=== PATIENT | female | born 1975 | race Caucasian/White ===

== ENCOUNTER 2017-11-28 14:18 | Observation (INO) | payer SELFPAY ==
[~2017-11-28] VITALS: Ht 157.5 cm; Wt 114.0 kg
[~2017-11-28 14:18] MED LIST: LORTAB5 PO; NO HOME MEDS; PENICILLN VK500 MG PO
--- NOTE | 2017-11-28 14:26 | NUR ---
WHEELCHAIR TO ER TRIAGE AREA AND RETURNED TO WAITING ROOM DUE TO LACK OF AVAILABLE BEDS
[2017-11-28 15:21] LABS: ALBUMIN 4.7 g/dL (3.2-5.0); ALKALINE PHOSPHATASE 117 u/l (38-126); ANION GAP 17 (6-22 (CALC)); BILIRUBIN, TOTAL 0.3 mg/dL (0.0-1.4); BUN 14 mg/dL (7-17); BUN/CREATININE RATIO 19 (12-20 (CALC)); CALCIUM 9.8 mg/dL (8.4-10.2); CARBON DIOXIDE 26 mmol/l (22-30); CHLORIDE 102 mmol/l (95-108); CREATININE 0.8 mg/dL (0.5-1.0); GFR > 60 ML/MIN (>=60 (CALC)); GFR FOR AFR.AMER. > 60 ML/MIN (>=60 (CALC)); GLUCOSE 150 mg/dL (65-105); LIPASE 79 u/l (23-300); POTASSIUM 3.9 mmol/l (3.5-5.1); SGOT/AST 31 u/l (14-36); SGPT/ALT 31 u/l (9-52); SODIUM 140 mmol/l (137-146); TOTAL PROTEIN 7.9 g/dL (6.3-8.2)
[2017-11-28 15:25] LABS: HEMOGLOBIN 14.9 g/dl (12.0-16.0); IMMATURE GRANULOCYTES 0.9 % (0.0-1.0); MEAN CELL VOLUME 90.2 fL CALC (80.0-100.0); MEAN CORPUSCULAR HGB 29.2 pG CALC (26.0-32.0); MEAN CORPUSCULAR HGB CONC 32.4 g/L CALC (32.0-36.0); NEUT# 8.98 thou/uL (2.00-7.15); RED BLOOD COUNT 5.1 mill/uL (4.20-5.60); RED CELL DISTRI WIDTH 16.2 % (11.5-15.5)
--- NOTE | 2017-11-28 15:30 | NUR ---
MIKY REPORTS PAIN TO EPIGASTRIC AREA UPON PALPATION AND DIARRHEA X4 DAY STARTING ON 11/19/17. RATES PAIN LEVEL 5/10. NO SIGNS OF DISTRESS NOTED. CALL LIGTH WITHIN REACH, WILL CONTINUE TO MONITOR.
--- NOTE | 2017-11-28 16:30 | NUR ---
SBAR PRINTED TO FLOOR
--- NOTE | 2017-11-28 16:50 | NUR ---
PATIENT AMBULATES TO BATHROOM WITH STEADY GAIT. URINE SAMPLE COLLECTED. REPORTS PAIN TO ABD RATES PAIN 06/03. MD INFORMED AWAITING NEW ORDERS.
--- NOTE | 2017-11-28 17:10 | NUR ---
MD INFORMED ABOUT LAB VALUES LACTIC ACID >2.0 AND WBC 11.8. AWAITING ORDERS.
[2017-11-28 17:24] LABS: URINE BILIRUBIN - DIPSTICK NEGATIVE (NEGATIVE); URINE BLOOD DIPSTICK TRACE-INTACT (NEGATIVE); URINE COLOR YELLOW; URINE GLUCOSE - DIPSTICK NEGATIVE (NEGATIVE); URINE KETONE NEGATIVE (NEGATIVE); URINE LEUK ESTERASE NEGATIVE (NEGATIVE); URINE NITRITE - DIPSTICK NEGATIVE (Negative); URINE PROTEIN - DIPSTICK TRACE mg/dL (NEG-TRACE); URINE SPECIFIC GRAVITY 1.025; URINE UROBILINOGEN - DIPSTICK 0.2 E.U./dL (0.2)
[2017-11-28 17:25] LABS: URINE CLARITY SL CLOUDY
--- NOTE | 2017-11-28 17:45 | NUR ---
REPORT GIVEN TO TIRSO MACKAY.
--- NOTE | 2017-11-28 17:50 | NUR ---
PATIENT TRANSPORTED TO [facility] VIA WHEELCHAIR. BEDSIDE REPORT GIVEN TO TIRSO MACKAY. CARE RELINQUISHED.
--- NOTE | 2017-11-28 18:00 | NUR ---
PT TO ROOM VIA WC ACCOMPANIED BY STAFF; PT A/O X3; PT HAS NOT COMPLAINTS OF PAIN VOICED AT THIS TIME; IVF INFUSING IN #20 LAC WITHOUT DIFFICULTY, NO REDNESS OR EDEMA NOTED; ENCOURAGE USE OF CALL LIGHT IF ANY ASSISTANCE IS NEEDED; WILL CONTINUE TO MONITOR.
[2017-11-28 18:20] VITALS: BP 140/85
--- NOTE | 2017-11-28 20:00 | NUR ---
PT IN BED A/O X3, RESPIRATIONS EVEN AND UNLABORED ON RA, C/O ABDOMINAL PAIN 04/03, DIALUDID FOR PAIN ORDERED Q4H PRN, PT AWARE AND STATES CAN WAIT, ALSO C/O NAUSEA DR. YU NOTIFIED AND NEW ORDER FOR ZOFRAN 4MG IV RECEIVED. PT AWARE. NS INFUSING TO LAC AT 80CC/HR. NPO AT THIST TIME. FAMILY AT BED SIDE, WILL CONTINUE TO MONITOR.
--- NOTE | 2017-11-28 22:12 | NUR ---
C/O ABDOMINAL PAIN 08/04, TORADOL 15MG IV ADMINISTERED AT THIS TIME. WILL CONTINUE TO MONITOR.
--- NOTE | 2017-11-29 02:26 | NUR ---
C/O ABDOMINAL PAIN 07/04, PROVIDED WITH LORTAB WITH A SIP OF WATER.
[2017-11-29 04:25] VITALS: BP 140/88
--- NOTE | 2017-11-29 06:45 | NUR ---
C/O ABDOMINAL PAIN 10/10 AND NAUSEA, TORADOL AND ZOFRAN ADMINISTERED AT THIS TIME, IV FLUIDS INFUSING TO LAC WITH NO COMPLICATIONS. CALL LIGHT IN REACH.
[2017-11-29 07:20] LABS: HEMATOCRIT 37.8 % (37.0-47.0); HEMOGLOBIN 12.2 g/dl (12.0-16.0); MEAN CELL VOLUME 89.6 fL CALC (80.0-100.0); MEAN CORPUSCULAR HGB 28.9 pG CALC (26.0-32.0); MEAN CORPUSCULAR HGB CONC 32.3 g/L CALC (32.0-36.0); RED BLOOD COUNT 4.22 mill/uL (4.20-5.60); RED CELL DISTRI WIDTH 16.2 % (11.5-15.5)
--- NOTE | 2017-11-29 07:30 | NUR ---
PT TO [facility] VIA WC ACCOMPANIED BY STAFF
[2017-11-29 07:36] LABS: ALBUMIN 3.7 g/dL (3.2-5.0); ALKALINE PHOSPHATASE 96 u/l (38-126); ANION GAP 13 (6-22 (CALC)); BILIRUBIN, TOTAL 0.6 mg/dL (0.0-1.4); BUN 12 mg/dL (7-17); BUN/CREATININE RATIO 17 (12-20 (CALC)); CALCIUM 8.6 mg/dL (8.4-10.2); CARBON DIOXIDE 22 mmol/l (22-30); CHLORIDE 109 mmol/l (95-108); CREATININE 0.7 mg/dL (0.5-1.0); GFR > 60 ML/MIN (>=60 (CALC)); GFR FOR AFR.AMER. > 60 ML/MIN (>=60 (CALC)); GLUCOSE 100 mg/dL (65-105); POTASSIUM 3.8 mmol/l (3.5-5.1); SGOT/AST 21 u/l (14-36); SGPT/ALT 26 u/l (9-52); SODIUM 141 mmol/l (137-146); TOTAL PROTEIN 6.3 g/dL (6.3-8.2)
--- NOTE | 2017-11-29 08:20 | NUR ---
PT RETURN FROM [facility] VIA WC ACCOMPANIED BY STAFF; NO COMPLAINTS VOICED AT THIS TIME; IVF INFUSING WITHOUT DIFFICULTY; CALL CASTILLO WITHIN REACH; WILL CONTINUE TO MONITOR.
[2017-11-29 09:00] VITALS: BP 132/76
--- NOTE | 2017-11-29 10:15 | NUR ---
DR. BARROS IN TO SEE PT; PLAN OF CARE DISCUSSED
[2017-11-29 12:00] LABS: CHOLESTEROL HDL RATIO 5.3 (<4.4 (CALC))
--- NOTE | 2017-11-29 12:20 | NUR ---
PT TOLERATED CLEAR LIQ DIET WELL; DENIES PAIN OR DISCOMFORT; FAMILY AT BEDSIDE; CALL CASTILLO WITHIN REACH; WILL CONTINUE TO MONITOR.
--- NOTE | 2017-11-29 12:40 | NUR ---
GUERLINE PROJECT ANALYST IN TO SEE PT TO DISCUSS LOW FAT DIET
[2017-11-29] MEDS ORDERED: LORTAB 5/3255 MG PO (14:42)
--- NOTE | 2017-11-29 17:18 | NUR ---
Discharge instructions given. Patient verbalizes understanding of same. Discharged in stable condition via Wheelchair to Home with family. All belongings sent with pt.
== END 2017-11-29 17:15 | disposition home or self-care (01) | DRG 446 ==
LOC: ED 14:18 → ED-I 16:07 → ED 16:24 → MS2 16:25
PROVIDERS: Emergency Medicine; Nurse Practitioner Family; ADMIT Internal Medicine; ATTEND Internal Medicine
DX: K80.20 Calculus of gallbladder without cholecystitis without obstruction (principal); F17.210 Nicotine dependence, cigarettes, uncomplicated
CPT/HCPCS: A9537; G0378

== ENCOUNTER 2023-08-01 22:45 | Emergency (ER) | payer SELFPAY ==
[~2023-08-01] VITALS: Ht 157.5 cm; Wt 104.3 kg
[~2023-08-01 22:45] MED LIST changes: +LORTAB 5/3255 MG PO
[2023-08-01 23:25] VITALS: BP 166/92
[2023-08-01 23:30] VITALS: BP 155/88
[2023-08-02 00:01] VITALS: BP 155/88
[2023-08-02] MEDS ORDERED: BACTRIM DS1 TAB PO (00:04)
[2023-08-02 00:30] VITALS: BP 155/88
== END 2023-08-02 01:24 | disposition home or self-care (01) | DRG 603 ==
LOC: ED 22:45
PROC: 0H96XZZ Drainage of Back Skin, External Approach (ICD-10-PCS; principal; 2023-08-02)
DX: L02.212 Cutaneous abscess of back [any part, except buttock and flank] (principal); F17.200 Nicotine dependence, unspecified, uncomplicated

== ENCOUNTER 2023-08-04 06:56 | Emergency (ER) | payer SELFPAY ==
[2023-08-04] VITALS (13 sets, daily range): BP systolic 115–142; BP diastolic 60–90
[~2023-08-04] VITALS: Ht 157.5 cm; Wt 104.0 kg
[~2023-08-04 06:56] MED LIST changes: +BACTRIM DS1 TAB PO
[2023-08-04 07:46] LABS: BASO% 0.3 % (0-3); EOS% 1.3 % (0-8); HEMATOCRIT 41.6 % (37.0-47.0); HEMOGLOBIN 13.3 g/dl (12.0-16.0); LYMPH% 15.1 % (15-41); MEAN CELL VOLUME 89.3 fL CALC (80.0-100.0); MEAN CORPUSCULAR HGB 28.5 pG CALC (26.0-32.0); MONO% 5.6 % (2-13); NEUT# 8.49 thou/uL (2.00-7.15); NEUT% 71.7 % (42-76); RED BLOOD COUNT 4.66 mill/uL (4.20-5.60); RED CELL DISTRI WIDTH 15.7 % (11.5-15.5)
[2023-08-04 07:59] LABS: ALBUMIN 3.8 g/dL (3.2-5.0); ALKALINE PHOSPHATASE 119 u/l (38-126); ANION GAP 14 (6-22 (CALC)); BUN 17 mg/dL (7-17); BUN/CREATININE RATIO 21 (12-20 (CALC)); CARBON DIOXIDE 25 mmol/l (22-30); CHLORIDE 100 mmol/l (95-108); CREATININE 0.8 mg/dL (0.5-1.0); GFR FOR AFR.AMER. > 60 ML/MIN (>=60 (CALC)); GFR OTHER RACES > 60 ML/MIN (>=60 (CALC)); POTASSIUM 3.5 mmol/l (3.5-5.1); SODIUM 136 mmol/l (137-146)
[2023-08-04 08:05] LABS: BILIRUBIN, TOTAL 0.3 mg/dL (0.02-1.3); SGOT/AST 37 u/l (14-36); TOTAL PROTEIN 7.7 g/dL (6.3-8.2)
[2023-08-04] MEDS ORDERED: KEFLEX500 MG PO (10:57)
== END 2023-08-04 11:22 | disposition home or self-care (01) | DRG 603 ==
LOC: ED 06:56
PROVIDERS: Emergency Medicine
DX: L02.212 Cutaneous abscess of back [any part, except buttock and flank] (principal); L03.312 Cellulitis of back [any part except buttock and flank]; Z48.00 Encounter for change or removal of nonsurgical wound dressing
CPT/HCPCS: Q9967

== ENCOUNTER 2024-12-16 20:55 | Emergency (ER) | payer SELFPAY ==
[2024-12-16] VITALS (9 sets, daily range): BP systolic 134–188; BP diastolic 77–119
[~2024-12-16] VITALS: Ht 157.5 cm; Wt 80.0 kg
[~2024-12-16 20:55] MED LIST changes: +KEFLEX500 MG PO
[2024-12-16] MEDS ORDERED: LORazepam 2 MG/ML IV ONE ×2 (21:05→22:25)
[2024-12-16] MEDS ORDERED: IPRATROPIUM-Albuterol 0.5MG-2.5MG/3 ML NEB ONE (21:05)
[2024-12-16] MEDS ORDERED: methylPREDNISolone SODIUM SUCC 125 MG/2 ML SDV IV ONE (21:05)
[2024-12-16] MEDS ORDERED: RACEPINEPHRINE HCL 2.25 % 0.5 ML VIAL IN ONE (21:15)
[2024-12-16] MEDS ORDERED: SODIUM CHLORIDE 0.9% 1,000 ML IV ONE ×3 (21:15→23:40)
[2024-12-16] MEDS ORDERED: EPINEPHrine HCL 1 MG/ML AMP ONE (21:17)
[2024-12-16] MEDS ORDERED: EPINEPHrine HCL 0.1 MG/ML 10 ML SYR IJ ONE (21:20)
[2024-12-16 21:29] LABS: BASO% 0.1 % (0-3); EOS% 0.1 % (0-8); IMMATURE GRANULOCYTES 0.3 % (0.0-5.0); LYMPH% 11.7 % (15-41); MEAN CELL VOLUME 94.2 fL CALC (80.0-100.0); MEAN CORPUSCULAR HGB 30.4 pG CALC (26.0-32.0); MEAN CORPUSCULAR HGB CONC 32.3 g/dL CAL (32.0-36.0); MONO% 6.3 % (2-13); NEUT# 13.3 thou/uL (2.00-7.15); NEUT% 81.5 % (42-76); RED BLOOD COUNT 5.65 mill/uL (4.20-5.60); RED CELL DISTRI WIDTH 15.2 % (11.5-15.5)
[2024-12-16 21:40] LABS: ALBUMIN 4.5 g/dL (3.2-5.0); BILIRUBIN, TOTAL 0.7 mg/dL (0.02-1.3); CREATININE 0.6 mg/dL (0.5-1.0); HEMATOCRIT 53.2 % (37.0-47.0); HEMOGLOBIN 17.2 g/dl (12.0-16.0); POTASSIUM 3.4 mmol/l (3.5-5.1); TOTAL PROTEIN 8.4 g/dL (6.3-8.2)
[2024-12-16] MEDS ORDERED: MAGNESIUM SULFATE HEPTAHYDRATE 2 GM in SODIUM CHLORIDE 0.9% 50 ML IV ONE (22:25)
[2024-12-16] MEDS ORDERED: POTASSIUM CHLORIDE 20 MEQ/TAB PO ONE (22:25)
[2024-12-16] MEDS ORDERED: MAGNESIUM SULFATE HEPTAHYDRATE 50 ML IV SCH (23:10)
[2024-12-16] MEDS ORDERED: KETOROLAC TROMETHAMINE 30 MG/ML SDV IV ONE (23:35)
[2024-12-16] MEDS ORDERED: POTASSIUM CHLORIDE 20 MEQ/PKT POWDER PO ONE (23:35)
[2024-12-16] MEDS ORDERED: BENZOCAINE-MENTHOL (MOUTH-THRO 1 LOZ LOZ PO PRN (23:40)
[2024-12-17] VITALS (17 sets, daily range): BP systolic 164–192; BP diastolic 88–106
[2024-12-17] MEDS ORDERED: BENZOCAINE-MENTHOL (MOUTH-THRO 1 LOZ LOZ PO SCH
[2024-12-17] MEDS ORDERED: cefTRIAXone SODIUM 2 GM in SODIUM CHLORIDE 0.9% 100 ML IV ONE (00:25)
[2024-12-17 02:12] LABS: URINE BILIRUBIN - DIPSTICK Negative (NEGATIVE); URINE BLOOD DIPSTICK Trace-intact (NEGATIVE); URINE COLOR Yellow; URINE GLUCOSE - DIPSTICK 500 mg/dL (NEGATIVE); URINE KETONE 40 mg/dL (NEGATIVE); URINE LEUK ESTERASE Negative (NEGATIVE); URINE NITRITE - DIPSTICK Negative (Negative); URINE PH 6.5 (4.5-8.0); URINE PROTEIN - DIPSTICK 100 mg/dL (NEG-TRACE); URINE SPECIFIC GRAVITY 1.015
[2024-12-17 02:19] LABS: URINE SQUAMOUS EPITHELIAL CELL FEW EPI/hpf (0-FEW)
[2024-12-17] MEDS ORDERED: DOXYCYCLINE HYCLATE 100 MG in SODIUM CHLORIDE 0.9% 100 ML IV ONE (04:05)
[2024-12-17] MEDS ORDERED: SODIUM CHLORIDE 0.9% 1,000 ML IV ONE (04:10)
[2024-12-17] MEDS ORDERED: hydrALAZINE HCL 20 MG/ML VIAL(1 ML) IV ONE (04:10)
[2024-12-17] MEDS ORDERED: ONDANSETRON HCl 4 MG/2 ML SDV IV ONE (04:10)
[2024-12-17] MEDS ORDERED: MORPHINE SULFATE 4 MG/ML VIAL IV ONE (04:10)
[2024-12-17] MEDS ORDERED: LORazepam 2 MG/ML IV ONE (04:40)
[2024-12-17] MEDS ORDERED: EPINEPHrine HCL 0.1 MG/ML 10 ML SYR IJ ONE (04:40)
[2024-12-17] MEDS ORDERED: EPINEPHrine HCL 1 MG/ML AMP ONE (04:43)
[2024-12-17] MEDS ORDERED: EPINEPHrine HCL 1 MG/ML AMP IN ONE (04:55)
[2024-12-17] MEDS ORDERED: LABETALOL HCL 20 MG/ 4 ML CARTRG IV ONE ×2 (05:39→06:40)
== END 2024-12-17 05:45 | DRG 153 ==
LOC: ED 20:55
PROVIDERS: Internal Medicine
DX: J39.1 Other abscess of pharynx (principal); J10.1 Influenza due to other identified influenza virus with other respiratory manifestations; R06.1 Stridor; F17.200 Nicotine dependence, unspecified, uncomplicated; Z20.822 Contact with and (suspected) exposure to COVID-19
CPT/HCPCS: J0360; J0696; J2060; J2405; J3475; Q9967